=== PATIENT | female | born 1935 | race Caucasian/White ===

== ENCOUNTER 2016-09-12 09:05 | Outpatient (CLI) | payer MEDICARE ==
[2016-09-12 13:07] LABS: BASOPHILS % (AUTO) 0.6 %; EOSINOPHILS # (AUTO) 0.1 10^3/uL (0.0-0.7); EOSINOPHILS % (AUTO) 1.6 %; HGB - HEMOGLOBIN 13.7 g/dL (12.0-16.0); LYMPHOCYTES # (AUTO) 1.6 10^3/uL (1.5-3.5); LYMPHOCYTES % (AUTO) 28.1 %; MEAN CORPUSCULAR HEMOGLOBIN 30.4 pg (27.0-31.0); MEAN CORPUSCULAR HGB CONC 34.2 g/dL (32.0-36.0); MEAN CORPUSCULAR VOLUME 88.7 fL (81.0-99.0); MEAN PLATELET VOLUME 7.4 fL (7.9-10.8); MONOCYTES # (AUTO) 0.4 10^3/uL (0.0-1.0); MONOCYTES % (AUTO) 7.5 %; NEUTROPHILS # (AUTO) 3.6 10^3/uL (1.5-6.6); NEUTROPHILS % (AUTO) 62.2 %; RED CELL DISTRIBUTION WIDTH 12.3 % (12.0-15.0); UNCORRECTED WHITE BLOOD COUNT 5.8 x10^3/uL; WHITE BLOOD COUNT 5.8 x10^3/uL (4.8-10.8)
[2016-09-12 14:09] LABS: ALBUMIN/GLOBULIN RATIO 1.3 (1.0-2.2); BILIRUBIN,TOTAL 0.9 mg/dL (0.2-1.0); BUN - BLOOD UREA NITROGEN 20 mg/dL (6-20); CALCIUM 9.5 mg/dL (8.5-10.3); CARBON DIOXIDE - CO2 26 mmol/L (21-32); CHLORIDE 104 mmol/L (101-111); CHOL/HDL RATIO 4.3 (<4.4); CHOLESTEROL 278 mg/dL; GFR - MDRD 53 (>89); GLUCOSE 119 mg/dL (70-100); HDL CHOLESTEROL 65 mg/dL; LDL/HDL RATIO 2.9 (<4.4); POTASSIUM 4.2 mmol/L (3.5-5.0); SODIUM 139 mmol/L (135-145); TOTAL PROTEIN 7.5 g/dL (6.7-8.2); TRIGLYCERIDES 120 mg/dL; VLDL CHOLESTEROL 24 mg/dL
[2016-09-12 14:22] LABS: HEMOGLOBIN A1C 0.62 g/dL
== END 2016-09-12 09:06 ==
LOC: LAB.WCP 09:05
PROVIDERS: ATTEND Family Medicine
DX: E78.5 Hyperlipidemia, unspecified (principal)
CPT/HCPCS: 36415; 80053; 80061; 82043; 83036; 85025

== ENCOUNTER 2018-11-08 09:34 | Outpatient (CLI) | payer MEDICARE ==
[2018-11-08 10:00] LABS: BASOPHILS % (AUTO) 0.5 %; EOSINOPHILS # (AUTO) 0.1 10^3/uL (0.0-0.7); EOSINOPHILS % (AUTO) 1.4 %; HGB - HEMOGLOBIN 13.8 g/dL (12.0-16.0); LYMPHOCYTES # (AUTO) 1.5 10^3/uL (1.5-3.5); LYMPHOCYTES % (AUTO) 24.2 %; MEAN CORPUSCULAR HEMOGLOBIN 30.1 pg (27.0-31.0); MEAN CORPUSCULAR HGB CONC 33.5 g/dL (32.0-36.0); MEAN CORPUSCULAR VOLUME 89.8 fL (81.0-99.0); MEAN PLATELET VOLUME 8.7 fL (7.9-10.8); MONOCYTES # (AUTO) 0.4 10^3/uL (0.0-1.0); MONOCYTES % (AUTO) 6.8 %; NEUTROPHILS # (AUTO) 4.3 10^3/uL (1.5-6.6); NEUTROPHILS % (AUTO) 66.9 %; PLT - PLATELET COUNT 224 10^3/uL (130-450); RED BLOOD COUNT 4.59 10^6/uL (4.20-5.40); RED CELL DISTRIBUTION WIDTH 12.1 % (12.0-15.0); WHITE BLOOD COUNT 6.4 x10^3/uL (4.8-10.8)
[2018-11-08 10:16] LABS: CREATININE,URINE 193.4 mg/dL; MICROALBUM/CREATININE RATIO,UR 5.7 ug/mg (<30.0); MICROALBUMIN,URINE 1.1 mg/dL (0-300.0)
[2018-11-08 10:21] LABS: ALBUMIN/GLOBULIN RATIO 1.1 (1.0-2.2); ALKALINE PHOSPHATASE 58 IU/L (42-121); ALT ALANINE AMINOTRANSFERASE 15 IU/L (10-60); AST ASPARTATE AMINOTRANSFERASE 21 IU/L (10-42); BILIRUBIN,TOTAL 0.9 mg/dL (0.2-1.0); BUN - BLOOD UREA NITROGEN 20 mg/dL (6-20); CALCIUM 9.4 mg/dL (8.5-10.3); CARBON DIOXIDE - CO2 29 mmol/L (21-32); CHLORIDE 105 mmol/L (101-111); CHOL/HDL RATIO 4.2 (<4.4); CHOLESTEROL 292 mg/dL; CREATININE 0.9 mg/dL (0.4-1.0); GFR - MDRD 60 (>89); GLUCOSE 132 mg/dL (70-100); HDL CHOLESTEROL 69 mg/dL; LDL CHOLESTEROL,CALCULATED 199 mg/dL; LDL/HDL RATIO 2.9 (<4.4); SODIUM 140 mmol/L (135-145); TOTAL PROTEIN 7.6 g/dL (6.7-8.2); VLDL CHOLESTEROL 24 mg/dL
[2018-11-08 10:38] LABS: HB2 TOTAL 14.4 g/dL; HEMOGLOBIN A1C 0.64 g/dL; HEMOGLOBIN A1C % 6.2 % (4.6-6.2)
== END 2018-11-08 09:35 | disposition home or self-care (01) ==
LOC: LAB 09:34
PROVIDERS: ATTEND Physician Assistant Medical
DX: E11.9 Type 2 diabetes mellitus without complications (principal)
CPT/HCPCS: 36415; 80053; 80061; 82043; 82570; 83036; 83721; 85025

== ENCOUNTER 2018-11-29 05:44 | Day surgery (SDC) | payer MEDICARE ==
[2018-11-29] MEDS ORDERED: MIDAZOLAM 2 MG/2 ML VIAL IVP ONE (05:45)
[2018-11-29] MEDS ORDERED: KETOROLAC 0.45% OPHTH DROPS ONE (06:24)
[2018-11-29] MEDS ORDERED: PROPARACAINE 0.5% OPHTH DROPS 15 ML ONE (06:25)
[2018-11-29] MEDS ORDERED: CYCLOPENTOLATE 1% OPHTH DROPS 2 ML ONE (06:25)
[2018-11-29] MEDS ORDERED: PHENYLEPHRINE 2.5% OPHTH 2 ML DROPS ONE (06:25)
[2018-11-29] MEDS ORDERED: PHENYLEPHRINE 2.5% OPHTH 2 ML DROPS LEFTEYE ONE (06:45)
[2018-11-29] MEDS ORDERED: CYCLOPENTOLATE 1% OPHTH DROPS 2 ML LEFTEYE ONE (06:45)
[2018-11-29] MEDS ORDERED: PROPARACAINE 0.5% OPHTH DROPS 15 ML LEFTEYE ONE ×2 (06:45→07:30)
[2018-11-29] MEDS ORDERED: LACTATED RINGERS 1,000 ML IV ONE (06:45)
[2018-11-29] MEDS ORDERED: KETOROLAC 0.45% OPHTH DROPS LEFTEYE ONE (06:45)
[2018-11-29] MEDS ORDERED: BRIMONIDINE 0.2% OPHTH DROPS 5 ML ONE (07:10)
[2018-11-29] MEDS ORDERED: TRIAMCIN/MOXIFLOX OPHTHALMIC 0.6 ML VIAL IO ONE ×2 (07:10→07:30)
[2018-11-29] MEDS ORDERED: TIMOLOL 0.5% OPHTH DROPS ONE (07:10)
--- NOTE | 2018-11-29 07:10 | ANESTHESIA ---
Pre-Anesthesia VS, & Labs - Diagnosis senile combined cataract left - Procedure left cataract extraction with intraocular lens implant Vital Signs: Temp Pulse Resp BP Pulse Ox 36 C L 106 H 16 155/89 H 97 11/29/18 06:28 11/29/18 06:28 11/29/18 06:28 11/29/18 06:28 11/29/18 06:28 Height 5 ft 1 in Weight (kg) 85.9 kg - NPO >8 hours - Is Patient ?: No - Lab Results Current Lab Results: Laboratory Tests 11/29/18 06:42: POC Whole Bld Glucose 127 H Home Medications and Allergies Home Medications: Ambulatory Orders Ascorbic Acid [Vitamin C] 500 mg PO DAILY 11/28/18 Cyanocobalamin (Vitamin B-12) [Vitamin B-12] 5,000 mg PO DAILY 11/28/18 Magnesium Citrate 250 mg PO DAILY 11/28/18 Vitamin E 400 units PO DAILY 11/28/18 Aspirin [Aspirin EC] 1 DAILY 11/29/18 Ascorbic Acid [Vitamin C] 500 mg PO DAILY 11/28/18 Cyanocobalamin (Vitamin B-12) [Vitamin B-12] 5,000 mg PO DAILY 11/28/18 Magnesium Citrate 250 mg PO DAILY 11/28/18 Vitamin E 400 units PO DAILY 11/28/18 Aspirin [Aspirin EC] 1 DAILY 11/29/18 Allergies/Adverse Reactions: Allergies Allergy/AdvReac Type Severity Reaction Status Date / Time No Known Drug Allergies Allergy Verified 11/28/18 13:34 Anes History & Medical History - Medical History Cardiovascular: reports: Hypertension, High cholesterol, Atrial fibrillation Pulmonary: reports: None Gastrointestinal: reports: None Urinary: reports: Frequency Musculoskeletal: reports: None Endocrine/Autoimmune: reports: Type 2 diabetes Skin: reports: Rosacea - Surgical History Orthopedic: Arthroscopic surgery Exam General: Alert Dental: WNL, Dentures full Upper, Partials Lower Mouth Opening: Greater than 4 Fingerbreadths Neck Mobility: Normal Mallampati classification: II Respiratory: Lungs clear Cardiovascular: Regular rate, Normal S1, Normal S2 Mental/Cognitive Status: Alert/Oriented X3 Plan Anesthesia Type: MAC Consent for Procedure(s) Verified and Reviewed: Yes Code Status: Attempt Resuscitation ASA classification: 2-Mild systemic disease Is this case an emergency?: No
[2018-11-29] MEDS ORDERED: BSS/LIDOCAINE/EPINEPHRINE 1 ML SYRINGE ONE (07:11)
[2018-11-29] MEDS ORDERED: VANCOMYCIN OPHTHALMI 8MG/0.8ML 8 MG/0.8 ML SYRINGE IO ONE ×2 (07:11→07:30)
[2018-11-29] MEDS ORDERED: CHONDR SULF/HYALURONATE SYRINGE IO ONE (07:29)
[2018-11-29] MEDS ORDERED: BRIMONIDINE 0.2% OPHTH DROPS 5 ML OPTH ONE (07:29)
[2018-11-29] MEDS ORDERED: EPINEPHrine 1 MG/ML AMP IVP ONE (07:29)
[2018-11-29] MEDS ORDERED: TIMOLOL 0.5% OPHTH DROPS OPTH ONE (07:29)
[2018-11-29] MEDS ORDERED: BSS/LIDOCAINE/EPINEPHRINE 1 ML SYRINGE IO ONE (07:30)
[2018-11-29 07:51] VITALS: BP 126/66
--- NOTE | 2018-11-29 08:30 | OPERATIVE REPORT ---
DATE OF SERVICE: 11/29/2018 Physician: Darwin Oneil MD PREOPERATIVE DIAGNOSIS: Visually significant cataract, left eye. This was her first cataract surgery. POSTOPERATIVE DIAGNOSIS: Visually significant cataract, left eye. This was her first cataract surgery. DESCRIPTION OF PROCEDURE: Phacoemulsification with posterior chamber intraocular lens implant, left eye. SURGEON: Darwin Oneil MD ANESTHESIA: Monitored anesthesia care. COMPLICATIONS: None. OPERATIVE INDICATIONS: This is an 83-year-old woman with progressive vision loss in the left eye due to 2+ nuclear sclerotic, 1 to 2+ cortical and 1 to 2+ posterior subcapsular cataract. Best corrected visual acuity was 20/25, with glare to 20/60 in the left eye. Indications for surgery are overall decrease in vision, difficulty seeing words on a computer screen, difficulty reading, difficulty seeing street signs, difficulty driving in low light or at night, difficulty driving at night because of headlights from other vehicles, and difficulty with glare or glare or bright lights in any situation. She was consented at length concerning risks and benefits of cataract surgery, after which she expressed a desire to proceed with surgery. OPERATIVE PROCEDURE: Patient was taken to OR #3 and placed under monitored anesthesia care. A surgical timeout was conducted confirming correct patient, correct procedure, and correct surgical site. She was given topical anesthesia, and prepped and draped in the usual sterile fashion. The eye was entered at the 6 and 3-o'clock positions. Intracameral Shugarcaine was injected into the anterior chamber, followed by Viscoat. A continuous-tear curvilinear capsulorrhexis was performed. The nucleus was hydrodissected and phacoemulsified. The cortex was evacuated using automated infusion and aspiration. Provisc was injected in the capsular bag and a 23.5-diopter intraocular lens inserted in the bag. Approximately 0.8 mL of a mixture of triamcinolone, moxifloxacin, and vancomycin was injected subconjunctivally in the superior quadrant for infection and inflammation prophylaxis. I and A was used to evacuate the viscoelastic materials. The eye was inflated to physiologic pressure using balanced salt solution and found to be watertight. Patient was taken from the operating room in good condition and given postoperative instructions. TD: 11/29/2018 07:54 MTDD
== END 2018-11-29 05:45 | disposition home or self-care (01) ==
LOC: SDS 05:44
PROVIDERS: ATTEND Ophthalmology
PROC: 08RK3JZ Replacement of Left Lens with Synthetic Substitute, Percutaneous Approach (ICD-10-PCS; principal; 2018-11-29 07:30)
DX: H25.812 Combined forms of age-related cataract, left eye (principal); E11.9 Type 2 diabetes mellitus without complications; I10 Essential (primary) hypertension; E78.00 Pure hypercholesterolemia, unspecified; I48.91 Unspecified atrial fibrillation
CPT/HCPCS: 66984; A9270; J3490; J7120; V2632

== ENCOUNTER 2019-01-03 07:12 | Day surgery (SDC) | payer MEDICARE ==
[~2019-01-03 07:12] MED LIST: BRIMONIDINE 0.2% OPHTH DROPS 5 ML ONE; BSS/LIDOCAINE/EPINEPHRINE 1 ML SYRINGE ONE; CYCLOPENTOLATE 1% OPHTH DROPS 2 ML ONE; EPINEPHrine 1 MG/ML AMP ONE; KETOROLAC 0.45% OPHTH DROPS ONE; PHENYLEPHRINE 2.5% OPHTH 2 ML DROPS ONE; PROPARACAINE 0.5% OPHTH DROPS 15 ML ONE; TIMOLOL 0.5% OPHTH DROPS ONE; TRIAMCIN/MOXIFLOX OPHTHALMIC 0.6 ML VIAL IO ONE
[2019-01-03] MEDS ORDERED: LACTATED RINGERS 500 ML IV ONE (07:17)
[2019-01-03] MEDS ORDERED: KETOROLAC 0.45% OPHTH DROPS RIGHTEYE ONE (07:25)
[2019-01-03] MEDS ORDERED: PROPARACAINE 0.5% OPHTH DROPS 15 ML RIGHTEYE ONE (07:25)
[2019-01-03] MEDS ORDERED: CYCLOPENTOLATE 1% OPHTH DROPS 2 ML RIGHTEYE ONE (07:25)
[2019-01-03] MEDS ORDERED: PHENYLEPHRINE 2.5% OPHTH 2 ML DROPS RIGHTEYE ONE (07:25)
--- NOTE | 2019-01-03 08:01 | ANESTHESIA ---
Pre-Anesthesia VS, & Labs - Diagnosis R senile combined cataract - Procedure R extraction cataract w/IOL Vital Signs: Temp Pulse Resp BP Pulse Ox 37.2 C 87 16 146/78 H 98 01/03/19 07:17 01/03/19 07:17 01/03/19 07:17 01/03/19 07:17 01/03/19 07:17 Height 5 ft 2 in Weight (kg) 86.1 kg - NPO >8 hours Last Fluid Intake: h20 at 0600 - Is Patient ?: No - Lab Results Current Lab Results: Laboratory Tests 01/03/19 07:37: POC Whole Bld Glucose 111 H Home Medications and Allergies Ascorbic Acid [Vitamin C] 500 mg PO DAILY 11/28/18 Cyanocobalamin (Vitamin B-12) [Vitamin B-12] 5,000 mg PO DAILY 11/28/18 Magnesium Citrate 250 mg PO DAILY 11/28/18 Vitamin E 400 units PO DAILY 11/28/18 Aspirin [Aspirin EC] 1 tab PO DAILY 11/29/18 Allergies/Adverse Reactions: Allergies Allergy/AdvReac Type Severity Reaction Status Date / Time No Known Drug Allergies Allergy Verified 11/28/18 13:34 Anes History & Medical History - Anesthetic History Anesthesia Complications: reports: No previous complications Family history of Anesthesia Complications: Denies Family history of Malignant Hyperthermia: Denies - Medical History Cardiovascular: reports: Hypertension, High cholesterol, Atrial fibrillation Pulmonary: reports: None Gastrointestinal: reports: None Urinary: reports: Frequency Musculoskeletal: reports: None Endocrine/Autoimmune: reports: Type 2 diabetes Skin: reports: Rosacea - Surgical History Eyes Ears Nose Throat (EENT): Cataracts Orthopedic: Arthroscopic surgery Exam General: Alert, Oriented x3, Cooperative Dental: Dentures full Upper, Partials Lower Mouth Openin Fingerbreadth Neck Mobility: Normal Mallampati classification: II Thyromental Distance: 4-6 cm Respiratory: Lungs clear, Normal breath sounds Neurological: Normal speech Mental/Cognitive Status: Alert/Oriented X3, Normal for patient Plan Anesthesia Type: MAC Consent for Procedure(s) Verified and Reviewed: Yes Code Status: Attempt Resuscitation ASA classification: 2-Mild systemic disease Is this case an emergency?: No
[2019-01-03] MEDS ORDERED: EPINEPHrine 1 MG/ML AMP IVP ONE (08:54)
[2019-01-03] MEDS ORDERED: CHONDR SULF/HYALURONATE SYRINGE IO ONE (08:54)
[2019-01-03] MEDS ORDERED: BRIMONIDINE 0.2% OPHTH DROPS 5 ML OPTH ONE (08:54)
[2019-01-03] MEDS ORDERED: VANCOMYCIN OPHTHALMI 8MG/0.8ML 8 MG/0.8 ML SYRINGE IO ONE (08:55)
[2019-01-03] MEDS ORDERED: TIMOLOL 0.5% OPHTH DROPS OPTH ONE (08:55)
[2019-01-03] MEDS ORDERED: BSS/LIDOCAINE/EPINEPHRINE 1 ML SYRINGE IO ONE (08:55)
[2019-01-03] MEDS ORDERED: TRIAMCIN/MOXIFLOX OPHTHALMIC 0.6 ML VIAL IO ONE (08:56)
[2019-01-03 09:22] VITALS: BP 119/67
--- NOTE | 2019-01-03 11:37 | OPERATIVE REPORT ---
DATE OF SERVICE: 01/03/2019 Physician: Darwin Oneil MD PREOPERATIVE DIAGNOSIS: Visually significant cataract, right eye. Cataract surgery was performed on the left eye on 11/29/2018. POSTOPERATIVE DIAGNOSIS: Visually significant cataract, right eye. Cataract surgery was performed o n the left eye on 11/29/2018. PROCEDURE: Phacoemulsification with posterior chamber intraocular lens implant, right eye. SURGEON: Darwin Oneil MD ANESTHESIA: Monitored anesthesia care. COMPLICATIONS: None. OPERATIVE INDICATIONS: This is an 83-year-old woman with progressive vision loss in the right eye du e to 2+ nuclear sclerotic and 1-2+ cortical cataract. Best corrected visual acuity was 20/25, with g lare to 20/60 in the right eye. Indications for surgery are overall decrease in vision, difficulty s eeing words on a computer screen, difficulty reading, difficulty seeing words, closed caption or game scores on TV, difficulty seeing street signs, difficulty driving in low light or at night, difficult y driving at night because of headlights from other vehicles, and difficulty with glare or bright lig hts in any situation. She was consented at length concerning risks and benefits of cataract surgery, after which she expressed a desire to proceed with surgery. OPERATIVE PROCEDURE: Patient was taken to OR #3 and placed under monitored anesthesia care. Surgica l timeout was conducted confirming correct patient, correct procedure, and correct surgical site. cortez was given topical anesthesia and then prepped and draped in the usual sterile fashion. The eye was entered at the 12 and 9 o'clock positions. Intracameral Shugarcaine was injected into the anterior chamber, followed by Viscoat. A continuous-tear curvilinear capsulorrhexis was performed. The nucle us was hydrodissected and phacoemulsified. The cortex was evacuated using automated infusion and asp iration. Provisc was injected in the capsular bag, and a 23.0 diopter intraocular lens was inserted in the bag. Approximately 0.25 mL of a mixture of triamcinolone and moxifloxacin was then injected t ranssclerally into the vitreous. An additional 0.55 mL of a mixture of triamcinolone, moxifloxacin a nd vancomycin was injected subconjunctivally in the superior quadrant for infection and inflammation prophylaxis. I and A was used to evacuate the viscoelastic materials. The eye was inflated to physi ologic pressure using balanced salt solution and found to be watertight. Patient was taken from the operating room in good condition and given postoperative instructions. TD: 01/03/2019 09:19
== END 2019-01-03 07:13 | disposition home or self-care (01) ==
LOC: SDS 07:12
PROVIDERS: ATTEND Ophthalmology
PROC: 08RJ3JZ Replacement of Right Lens with Synthetic Substitute, Percutaneous Approach (ICD-10-PCS; principal; 2019-01-03 08:30)
DX: H25.811 Combined forms of age-related cataract, right eye (principal); E11.9 Type 2 diabetes mellitus without complications; I48.91 Unspecified atrial fibrillation; I10 Essential (primary) hypertension; E78.00 Pure hypercholesterolemia, unspecified
CPT/HCPCS: 66984; A9270; J3490; V2632

== ENCOUNTER 2019-04-30 12:55 | Outpatient (CLI) | payer MEDICARE ==
--- NOTE | 2019-04-30 15:26 | Ultrasound Report ---
Reason: LT BREAST MASS Procedure Date: 04/30/2019 Accession Number: [id number] / [id number] Procedure: US - Breast Unilateral Limited CPT Code: Final Report FULL RESULT: EXAM: Diagnostic Lissett Connerat, Breast Unilateral Limited DATE: 04/30/2019 1:53 PM CLINICAL HISTORY: Palpable left breast mass COMPARISON: None MAMMOGRAM: TECHNIQUE: (B) - Bilateral CC and MLO views were obtained. PARENCHYMAL PATTERN: (D) - The breasts demonstrate heterogeneously dense fibroglandular parenchyma bilaterally. FINDINGS: Right breast: There are no suspicious masses, calcifications, or areas of distortion. Scattered benign-appearing calcifications are present. Left breast: There is a spiculated left upper outer quadrant mass 10 cm from the nipple. There is overlying skin retraction. Few scattered benign-appearing calcifications are seen in the remainder of the breast.. LEFT BREAST ULTRASOUND: TECHNIQUE: Real time scanning by the technical program manager with saved static images reviewed. FINDINGS: Corresponding to the mammographic and palpable abnormality is a 3 x 2.9 x 1.9 cm vascular hypoechoic irregular spiculated mass. No pathologic axillary lymphadenopathy is identified. IMPRESSION: 1. Highly suggestive for malignancy. BI-RADS category 5. Left breast. 2. Negative right breast. RECOMMENDATION: (BIOPSY) - left breast BI-RADS CATEGORY: (5) - Highly suggestive for malignancy. STANDARD QUALIFYING STATEMENTS: 1. This examination was not reviewed with the aid of Computer-Aided Detection (CAD). 2. A negative or benign imaging report should not preclude biopsy if clinically suspicious findings are present. 3. Dense breasts may obscure an underlying neoplasm. 4. This examination was reviewed with the aid of 3D breast imaging (tomosynthesis).
== END 2019-04-30 12:56 | disposition home or self-care (01) ==
LOC: DI 12:55
PROVIDERS: ATTEND Physician Assistant Medical
DX: N63.21 Unspecified lump in the left breast, upper outer quadrant (principal)
CPT/HCPCS: 76642; 77066

== ENCOUNTER 2019-05-13 12:54 | Outpatient (CLI) | payer MEDICARE ==
[2019-05-13] MEDS ORDERED: BUFFERED LIDOCAINE 10 ML SYRINGE ONE (13:02)
--- NOTE | 2019-05-13 14:10 | Mammography Report ---
Reason: LT BREAST MASS Procedure Date: 05/13/2019 Accession Number: [id number] / [id number] Procedure: KERRY - Diagnostic Dig LT CPT Code: Final Report FULL RESULT: PROCEDURE: Ultrasound-guided needle biopsy left breast mass. CLINICAL DATA: Targeted mass measuring 3 cm with irregular margins in the 2 o'clock axis of the left breast. Informed consent was obtained. Using standard aseptic technique, 1% buffered lidocaine was injected into the left breast for local anesthesia. A small shawn was made in the skin with a #11 blade. A 12-gauge Stream[employer] System vacuum-assisted device was used to obtain 3 specimens. A specialized biopsy marker clip was placed into the biopsy cavity under ultrasound guidance. The patient was taken to separate mammography machine and a two-view digital mammography was performed to verify the clip placement and any complications. The mammography showed the clip to be in the region of the targeted mass. The wound was dressed and ice applied. The patient was observed for approximately 15 minutes, then was discharged from diagnostic imaging Department in good condition following instructions on wound care and obtaining biopsy results. The patient is scheduled to receive the biopsy results from the referring physician. The tissue was sent for histologic analysis. IMPRESSION: Ultrasound-guided biopsy of the left breast. AN ADDENDUM WILL BE MADE TO THIS REPORT WHEN PATHOLOGY IS REVIEWED TO ESTABLISH CONCORDANCE.
[2019-05-13] MEDS ORDERED: BUFFERED LIDOCAINE 10 ML SYRINGE IU ONE (16:32)
== END 2019-05-13 12:55 | disposition home or self-care (01) ==
LOC: DI 12:54
PROVIDERS: ATTEND Physician Assistant Medical
DX: C50.412 Malignant neoplasm of upper-outer quadrant of left female breast (principal); Z17.0 Estrogen receptor positive status [ER+]
CPT/HCPCS: 19083

== ENCOUNTER 2019-07-11 13:31 | Outpatient (CLI) | payer MEDICARE | END 2019-07-11 13:32 | disposition home or self-care (01) | LOC: COV 13:31 | PROVIDERS: ATTEND Surgery | DX: Z01.812 Encounter for preprocedural laboratory examination (principal); C50.912 Malignant neoplasm of unspecified site of left female breast | CPT/HCPCS: 81599 ==

== ENCOUNTER 2019-07-15 07:55 | Day surgery (SDC) | payer MEDICARE ==
[~2019-07-15 07:55] MED LIST changes: -BRIMONIDINE 0.2% OPHTH DROPS 5 ML ONE; -BSS/LIDOCAINE/EPINEPHRINE 1 ML SYRINGE ONE; +CEFAZOLIN SODIUM IN 0.9 % NACL 2 GM/100 ML BAG IV ONE; -CYCLOPENTOLATE 1% OPHTH DROPS 2 ML ONE; -EPINEPHrine 1 MG/ML AMP ONE; -KETOROLAC 0.45% OPHTH DROPS ONE; -PHENYLEPHRINE 2.5% OPHTH 2 ML DROPS ONE; -PROPARACAINE 0.5% OPHTH DROPS 15 ML ONE; -TIMOLOL 0.5% OPHTH DROPS ONE; -TRIAMCIN/MOXIFLOX OPHTHALMIC 0.6 ML VIAL IO ONE
[2019-07-15] MEDS ORDERED: LACTATED RINGERS 1,000 ML IV ONE (08:05)
[2019-07-15] MEDS ORDERED: BUFFERED LIDOCAINE 10 ML SYRINGE ONE (08:47)
[2019-07-15] MEDS ORDERED: LIDOCAINE 1%-EPI 1:100000 20 ML MDV ONE ×2 (08:55→11:52)
[2019-07-15] MEDS ORDERED: BUPIVACAINE 0.5% PF 30 ML VIAL ONE ×2 (08:55→11:52)
--- NOTE | 2019-07-15 09:04 | ANESTHESIA ---
Pre-Anesthesia VS, & Labs - Diagnosis left breast cancer - Procedure Left breast lumpectomy with sentinel node biopsy Vital Signs: Temp Pulse Resp BP Pulse Ox 36.0 C L 115 H 20 159/82 H 98 07/15/19 07:52 07/15/19 07:52 07/15/19 07:52 07/15/19 07:52 07/15/19 07:52 Height 5 ft 2 in Weight (kg) 81.9 kg Body Mass Index 33.8 - NPO >8 hours - Is Patient ?: No - Lab Results Current Lab Results: Laboratory Tests 07/15/19 08:08: POC Whole Bld Glucose 115 H Home Medications and Allergies Home Medications: Ambulatory Orders Aspirin 81 mg PO 07/12/19 Aspirin 81 mg PO 07/12/19 Allergies/Adverse Reactions: Allergies Allergy/AdvReac Type Severity Reaction Status Date / Time No Known Drug Allergies Allergy Verified 07/10/19 12:02 Anes History & Medical History - Anesthetic History Anesthesia Complications: reports: No previous complications - Medical History Cardiovascular: reports: Hypertension, High cholesterol, Atrial fibrillation Pulmonary: reports: None Gastrointestinal: reports: None Urinary: reports: Frequency Neuro: reports: None Musculoskeletal: reports: None Endocrine/Autoimmune: reports: Type 2 diabetes (diet controlled) Blood Disorders: reports: None Skin: reports: Rosacea Smoking Status: Never smoker Psychosocial: reports: No issues indicated Other Past Medical History: breast cancer - Surgical History Eyes Ears Nose Throat (EENT): Cataracts Orthopedic: Arthroscopic surgery (bilateral knees) Results - EKG Results EKG Comparison: Reviewed EKG (afib with left BBB) Exam General: Alert, Oriented x3, Cooperative, No acute distress Dental: Dentures full Upper, Partials Upper Mouth Openin Fingerbreadth Neck Mobility: Normal Mallampati classification: II Thyromental Distance: 4-6 cm Respiratory: Lungs clear, Normal breath sounds, No respiratory distress, No accessory muscle use Cardiovascular: Other (irregular) Mental/Cognitive Status: Alert/Oriented X3, Normal for patient Plan Anesthesia Type: General Consent for Procedure(s) Verified and Reviewed: Yes Code Status: Attempt Resuscitation ASA classification: 3-Severe systemic disease Is this case an emergency?: No
[2019-07-15] MEDS ORDERED: ceFAZolin 1 GM VIAL ONE (11:52)
[2019-07-15] MEDS ORDERED: SODIUM CHLORIDE 0.9% 10 ML ONE (11:54)
[2019-07-15] MEDS ORDERED: PROPOFOL 200 MG/20 ML VIAL IVP ONE (12:07)
[2019-07-15] MEDS ORDERED: HYDROmorphone 1 MG/ML CARPUJECT IVP ONE (12:07)
[2019-07-15] MEDS ORDERED: fentaNYL 100 MCG/2 ML VIAL IVP ONE (12:07)
[2019-07-15] MEDS ORDERED: KETOROLAC 30 MG/ML VIAL IVP ONE (12:07)
[2019-07-15] MEDS ORDERED: ONDANSETRON 4 MG/2 ML VIAL IVP ONE (12:07)
[2019-07-15] MEDS ORDERED: PHENYLEPHRINE 10 MG/ML VIAL IV ONE (12:07)
[2019-07-15] MEDS ORDERED: ACETAMINOPHEN 1,000 MG/100 ML 100 ML IV ONE ×2 (12:07→12:08)
[2019-07-15] MEDS ORDERED: LIDOCAINE 1%-EPI 1:100000 30 ML MDV SUBQ ONE (12:24)
[2019-07-15] MEDS ORDERED: BUPIVACAINE 0.5% PF 30 ML VIAL INFIL ONE (12:24)
--- NOTE | 2019-07-15 13:27 | OPERATIVE REPORT ---
Operative Report - General Procedure Date: 07/15/19 Planned Procedure: Left breast lumpectomy and sentinel node biopsy Pre-Op Diagnosis: Left breast cancer Procedure Performed: Left breast lumpectomy and axillary dissection Post Op Diagnosis: Left breast cancer - Procedure Note Primary Surgeon: Collins Anesthesia Provider: NATHANIEL Millard Anesthesia Technique: General LMA, Local Pathology: Left breast mass and axillary tail incluiding palpable node. IV Fluids (mL): 500 Estimated Blood Loss (mL): 40 Drain/Tube Type: Jose drain Findings: 1. No sentinel nodes identified 2. 1 palpably enlarged level 2 axillary node Complications: None apparent - Other Other Information/Narrative: After obtaining informed consent, the patient was brought to the operating room and placed in the supine position on the operating table. Following successful induction of general anesthesia, appropriate padding of all bony prominences, and placed on appropriate monitors, the left chest and axilla were prepped and draped in the standard surgical fashion. A timeout was held per scope protocol. All elements of the surgical safety checklist were followed before, during, and after the procedure. We began the procedure by infiltrating a mixture of local anesthetics and an elliptical pattern around the visible and palpable mass in the upper outer quadrant of the left breast. An incision was created here and carried down through the skin and subcutaneous tissue. Laterally, at the axillary limit of the incision, we began searching for a sentinel node. The nipple injection site had greater than 2000 counts per second and we were not able to find any counts above 0 in the patient's axilla. We elected to remove the specimen en bloc with the palpable level 2 axillary node. This had been noted on the MRI to be a total measurement of approximately 13 cm.A ruler, I measured 13 cm from the palpable node over the visible and palpable mass. Limits of dissection were determined by extending this measurement 1 cm proximally and distally.The incision was carried through the skin and subcutaneous tissue and continued all the way to the chest wall laterally. The chest wall was not well was then followed approximately 2 into the axillary packet. The lymph node that could be visualized is abnormal on the MRI was identified palpably. Dissection was extended 1 cm proximal to this. A ferritin efferent lymphatics were addressed with suture ligature. We continued in a circumferential fashion the breast tissue from the underlying pectoralis muscle posteriorly and anteriorly from the overlying dermis. When the entire dissection was complete, the specimen was liberated and measured on the back table.The specimen was 16 x 13 cm with variable degrees of thickness. The defect was then checked for hemostasis. It was irrigated with warm water containing Ancef. Due to the extensive size and volume defect, I elected to place a drain in this pocket. This was placed inferiorly and brought out inferior medially. It was sewn into place with a nylon suture. The incision was then closed with interrupted Vicryl suture and Monocryl stitches were placed in the skin. All sponge, needle, and instrument counts were correct at the conclusion of the case. The patient was allowed awaken from anesthesia without difficulty and taken to the postanesthesia care unit in good condition.
[2019-07-15] MEDS ORDERED: IBUPROFEN 600 MG TABLET PO PRN (13:35)
[2019-07-15] MEDS ORDERED: oxyCODONE 5 MG TABLET PO PRN (13:35)
[2019-07-15] MEDS ORDERED: ONDANSETRON 4 MG/2 ML VIAL IVP PRN (13:35)
[2019-07-15] MEDS ORDERED: ACETAMINOPHEN 325 MG TABLET PO PRN (13:35)
[2019-07-15 14:31] VITALS: BP 127/62
[2019-07-15] MEDS ORDERED: oxyCODONE 5 MG TABLET ONE (14:35)
--- NOTE | 2019-07-16 09:01 | Nuclear Medicine Report ---
Reason: LEFT BREAST CA Procedure Date: 07/15/2019 Accession Number: [id number] / [id number] Procedure: NM - Lymph Node Scintigraphy CPT Code: Final Report FULL RESULT: PROCEDURE: SENTINEL LYMPH NODE INJECTION WITHOUT IMAGING RADIOPHARMACEUTICAL: 0.5-1.0 mCi Millipore filtered Tc-99m sulfur colloid. INDICATIONS: LEFT BREAST CA PROCEDURE: The area around the nipple was prepped and draped in a sterile fashion. Tc-99m sulfur colloid was injected intra-dermally around the outer edge of the areola in the left breast. Multiple images were obtained in an attempt to locate a sentinel lymph node. IMPRESSION: Administration of radiotracer into the left breast periareolar region for intra-operative sentinel lymph node localization. The postinjection imaging did not identify a discrete sentinel lymph node. Reviewed by: Balaji Quiroga MD on 07/16/2019 8:59 AM PDT Approved by: Balaji Quiroga MD on 07/16/2019 8:59 AM PDT Station ID: [id number]
== END 2019-07-15 07:56 | disposition home or self-care (01) ==
LOC: SDS 07:55
PROVIDERS: ATTEND Surgery
PROC: 07B60ZX Excision of Left Axillary Lymphatic, Open Approach, Diagnostic (ICD-10-PCS; 2019-07-15)
PROC: 0HBU0ZZ Excision of Left Breast, Open Approach (ICD-10-PCS; principal; 2019-07-15 09:30)
DX: C50.412 Malignant neoplasm of upper-outer quadrant of left female breast (principal); C77.3 Secondary and unspecified malignant neoplasm of axilla and upper limb lymph nodes; Z17.0 Estrogen receptor positive status [ER+]; E11.9 Type 2 diabetes mellitus without complications; I10 Essential (primary) hypertension; I48.91 Unspecified atrial fibrillation; E66.9 Obesity, unspecified; Z68.33 Body mass index [BMI] 33.0-33.9, adult
CPT/HCPCS: 19301; 38525; 78195; 93005; A9270; A9541; J0131; J0690; J1170; J7120

== ENCOUNTER 2021-11-10 15:31 | Inpatient (IN) | payer MEDICARE ==
[2021-11-10 16:03] LABS: BASOPHILS # (AUTO) 0.1 10^3/uL (0.0-0.1); BASOPHILS % (AUTO) 0.5 %; EOSINOPHILS # (AUTO) 0.1 10^3/uL (0.0-0.7); EOSINOPHILS % (AUTO) 0.6 %; HCT - HEMATOCRIT 41.6 % (37.0-47.0); HGB - HEMOGLOBIN 13.1 g/dL (12.0-16.0); LYMPHOCYTES # (AUTO) 1.3 10^3/uL (1.5-3.5); LYMPHOCYTES % (AUTO) 12.8 %; MEAN CORPUSCULAR HGB CONC 31.5 g/dL (32.0-36.0); MEAN CORPUSCULAR VOLUME 92.2 fL (81.0-99.0); MONOCYTES # (AUTO) 0.8 10^3/uL (0.0-1.0); MONOCYTES % (AUTO) 7.7 %; NEUTROPHILS # (AUTO) 7.6 10^3/uL (1.5-6.6); PLT - PLATELET COUNT 314 10^3/uL (130-450); RED BLOOD COUNT 4.51 10^6/uL (4.20-5.40); RED CELL DISTRIBUTION WIDTH 15.3 % (12.0-15.0); WHITE BLOOD COUNT 9.8 x10^3/uL (4.8-10.8)
--- NOTE | 2021-11-10 16:12 | XRAY Report ---
PROCEDURE: Chest 1 View X-Ray INDICATIONS: Chest Pain TECHNIQUE: One view of the chest was acquired. COMPARISON: Chest x-ray 08/18/2021 FINDINGS: Surgical changes and devices: None. Lungs and pleura: There is interval development of moderate left and mild right pleural effusions. Mediastinum: Mediastinal contours appear normal. Heart size is normal. Bones and chest wall: No suspicious bony lesions. Overlying soft tissues appear unremarkable. IMPRESSION: Interval development of bilateral pleural effusions as above. Underlying areas of pneumonia and/or at electasis or mass lesion cannot be definitively excluded. Follow-up after appropriate therapy to docu ment resolution. Reviewed by: Kortney Lopez MD on 11/10/2021 4:11 PM PDT Approved by: Kortney Lopez MD on 11/10/2021 4:11 PM PDT Station ID: [id number]
[2021-11-10] MEDS ORDERED: diltiaZEM INJ 125 MG in DEXTROSE 5% 100 ML IV STA (16:17)
[2021-11-10] MEDS ORDERED: diltiaZEM INJ 5 MG/ML VIAL IVP STA ×2 (16:17→19:07)
--- NOTE | 2021-11-10 16:19 | ED Physician Documentation ---
PD HPI CHEST PAIN - Stated complaint Stated Complaint: CHEST PX - Chief complaint Chief Complaint: Cardiac - History obtained from History obtained from: Patient, Family - History of Present Illness Timing - details: Abrupt onset, Intermittant Pain level max: 10 Pain level now: 0 Quality: Pressure Location: Substernal Radiation: No: Jaw, Neck, Back, Abdominal, Left upper extremity, Right upper extremity Improved by: Nothing Worsened by: No: Exertion, Inspiration, Eating, Movement, Palpation, Position Associated symptoms: Shortness of air, Palpitations (History of atrial fibrillation, states currently is not on medication for this). No: Diaphoresis, Nausea, Vomiting, Feeling faint / dizzy, General Weakness, Cough - Additional information Additional information: Patient is an 86-year-old female who presents to the emergency department complaint of chest pain intermittently for the past 2 to 3 days. Last for 20 to 30 minutes at a time. Nothing seems to make it better or worse. No change with exertion. She states she has felt short of breath for the last several days as well. Has a history of atrial fibrillation. She is not on any medications at home currently. Has a history of stage III breast cancer status postchemotherapy and radiation. She is reestablishing care with oncology to talk about palliative chemotherapy. She saw oncology today and was sent here for evaluation for her chest pain. Chest pain is in the center of her chest. She has noted increased leg swelling as well. Review of Systems Ten Systems: 10 systems reviewed and negative Constitutional: denies: Fever, Chills Nose: denies: Rhinorrhea / runny nose, Congestion Throat: denies: Sore throat Cardiac: reports: Chest pain / pressure Respiratory: reports: Dyspnea. denies: Cough GI: denies: Abdominal Pain, Nausea, Vomiting, Diarrhea Skin: denies: Rash Musculoskeletal: denies: Neck pain, Back pain Neurologic: denies: Headache PD PAST MEDICAL HISTORY - Past Medical History Cardiovascular: Hypertension, High cholesterol, Atrial fibrillation Respiratory: None Neuro: None Endocrine/Autoimmune: Type 2 diabetes (diet controlled) GI: None : Frequency HEENT: Chronic vision loss Psych: None Musculoskeletal: None Derm: Rosacea - Past Surgical History Ortho: Arthroscopic surgery (bilateral knees) HEENT: Cataracts - Present Medications Home Medications: Ambulatory Orders Medication Instructions Recorded Confirmed traMADol [Ultram] 50 mg PO TID PRN 11/10/21 11/10/21 - Allergies Allergies/Adverse Reactions: Allergies Allergy/AdvReac Type Severity Reaction Status Date / Time No Known Drug Allergies Allergy Verified 11/10/21 15:45 - Social History Smoking Status: Never smoker PD ED PE NORMAL - Vitals Vital signs reviewed: Yes - General General: Alert and oriented X 3, No acute distress - HEENT HEENT: PERRL, Moist mucous membranes - Neck Neck: Supple, no meningeal sign - Cardiac Cardiac: RRR, Strong equal pulses - Respiratory Respiratory: No respiratory distress, Other (decreased BS bilaterally.) - Abdomen Abdomen: Soft, Non tender, Non distended - Derm Derm: Warm and dry, No rash, Other (Chronic skin changes over the left breast and left upper chest from radiation. There is scaling and papules) - Extremities Extremities: Other (2+ BLE edema) - Neuro Neuro: Alert and oriented X 3 Results - Vitals Vitals: Vital Signs - 24 hr 11/10/21 11/10/21 11/10/21 15:38 15:44 16:29 Temperature 36.4 C L 36.5 C Heart Rate 135 H 135 H 147 H Respiratory 31 H 31 H 29 H Rate Blood Pressure 150/93 H 150/93 H 159/114 H O2 Saturation 97 97 96 If not protocol : Oxygen Flow, liters/minute 11/10/21 11/10/21 11/10/21 16:30 17:00 17:05 Temperature Heart Rate 126 H 90 Respiratory 35 H 24 Rate Blood Pressure 154/108 H 122/67 O2 Saturation 94 92 88 L If not protocol : Oxygen Flow, liters/minute 11/10/21 11/10/21 11/10/21 17:09 17:14 17:30 Temperature Heart Rate 110 H 114 H Respiratory 25 H 24 Rate Blood Pressure 140/91 H 137/92 H O2 Saturation 94 96 96 If not protocol 2 : Oxygen Flow, liters/minute 11/10/21 11/10/21 11/10/21 18:00 18:30 19:00 Temperature Heart Rate 118 H 120 H 116 H Respiratory 33 H 28 H 25 H Rate Blood Pressure 160/112 H 146/98 H 144/86 H O2 Saturation 94 96 96 If not protocol 2 2 2 : Oxygen Flow, liters/minute Oxygen O2 Source Nasal cannula Oxygen Flow Rate 2 - EKG (time done) 1536 Rate: Rate (enter#) (140) Rhythm: Atrial fibrillation (w/ RVR) Intervals: LBBB Compare to prior EKG: Unchanged from prior EKG (07-15-2019) - Labs Labs: Laboratory Tests 11/10/21 11/10/21 11/10/21 15:55 15:55 15:55 WBC 9.8 RBC 4.51 Hgb 13.1 Hct 41.6 MCV 92.2 MCH 29.0 MCHC 31.5 L RDW 15.3 H Plt Count 314 MPV 9.0 Neut # (Auto) 7.6 H Lymph # (Auto) 1.3 L [place] # (Auto) 0.8 Eos # (Auto) 0.1 Baso # (Auto) 0.1 Absolute Nucleated RBC 0.00 Nucleated RBC % 0.0 Sodium 140 Potassium 4.3 Chloride 101 Carbon Dioxide 26 Anion Gap 13.0 BUN 22 H Creatinine 1.2 H Estimated GFR (MDRD) 43 L Glucose 158 H Calcium 10.0 Total Bilirubin 0.5 AST 31 ALT 11 Alkaline Phosphatase 117 Troponin I High Sens 20.2 H* B-Natriuretic Peptide Total Protein 7.9 Albumin 3.7 Globulin 4.2 Albumin/Globulin Ratio 0.9 L Lipase 50 Nasal Adenovirus (PCR) Nasal B. parapertussis DNA (PCR) Nasal Coronavir 229E PCR Nasal Coronavir HKU1 PCR Nasal Coronavir NL63 PCR Nasal Coronavir OC43 PCR Nasal Enterovir/Rhinovir PCR Nasal Influenza B PCR Nasal Influenza A PCR Nasal Parainfluen 1 PCR Nasal Parainfluen 2 PCR Nasal Parainfluen 3 PCR Nasal Parainfluen 4 PCR Nasal RSV (PCR) Nasal B.pertussis DNA PCR Nasal C.pneumoniae (PCR) Naseem Human Metapneumo PCR Nasal M.pneumoniae (PCR) Nasal SARS-CoV-2 (PCR) 11/10/21 11/10/21 15:55 18:12 WBC RBC Hgb Hct MCV MCH MCHC RDW Plt Count MPV Neut # (Auto) Lymph # (Auto) [place] # (Auto) Eos # (Auto) Baso # (Auto) Absolute Nucleated RBC Nucleated RBC % Sodium Potassium Chloride Carbon Dioxide Anion Gap BUN Creatinine Estimated GFR (MDRD) Glucose Calcium Total Bilirubin AST ALT Alkaline Phosphatase Troponin I High Sens B-Natriuretic Peptide 335 H Total Protein Albumin Globulin Albumin/Globulin Ratio Lipase Nasal Adenovirus (PCR) NOT DETECTED Nasal B. parapertussis DNA (PCR) NOT DETECTED Nasal Coronavir 229E PCR NOT DETECTED Nasal Coronavir HKU1 PCR NOT DETECTED Nasal Coronavir NL63 PCR NOT DETECTED Nasal Coronavir OC43 PCR NOT DETECTED Nasal Enterovir/Rhinovir PCR NOT DETECTED Nasal Influenza B PCR NOT DETECTED Nasal Influenza A PCR NOT DETECTED Nasal Parainfluen 1 PCR NOT DETECTED Nasal Parainfluen 2 PCR NOT DETECTED Nasal Parainfluen 3 PCR NOT DETECTED Nasal Parainfluen 4 PCR NOT DETECTED Nasal RSV (PCR) NOT DETECTED Nasal B.pertussis DNA PCR NOT DETECTED Nasal C.pneumoniae (PCR) NOT DETECTED Naseem Human Metapneumo PCR NOT DETECTED Nasal M.pneumoniae (PCR) NOT DETECTED Nasal SARS-CoV-2 (PCR) NOT DETECTED - Rads (name of study) cxr Radiology: Final report received, EMP read contemporaneously, See rad report CT chest angio Radiology: Final report received, EMP read contemporaneously, See rad report PD MEDICAL DECISION MAKING - ED course Complexity details: reviewed results, re-evaluated patient, considered differential, d/w patient, d/w family, d/w php consultant ED course: Patient is an 86-year-old female with a history of breast cancer. She has had increasing dyspnea and chest pain over the past several days. Appears to have new moderate bilateral pleural effusions with compressive atelectasis. Denies any history of congestive heart failure. Has not had pleural effusions before. She does have significant edema of the bilateral lower extremities. She has hypoxic. 88% on room air lying in bed. Placed on supplemental oxygen. Also found to be in atrial fibrillation with rapid ventricular response. Initially required diltiazem drip to be rate controlled. This was eventually able to be stopped after oral diltiazem and a another dose of IV push diltiazem. Rate controlled in the 80s. Given the new pleural effusions along with the hypoxia. We will admit the patient for further care. Patient is considering whether she wants to do chemotherapy again for her breast cancer or not. She does wish to be DNR. Discussed the case with the hospitalist, telehealth who accepts. This document was made in part using voice recognition software. While efforts are made to proofread this document, sound alike and grammatical errors may occur. FINDINGS: Image quality: Excellent. Pulmonary arteries: Pulmonary arteries are normal in size, and demonstrate no intraluminal filling defects to suggest central pulmonary embolism. Lungs and pleura: Moderate sized bilateral pleural effusions. Atelectatic consolidation of the left lower lobe Mediastinum: Heart size is normal, without pericardial effusion. No mediastinal or hilar adenopathy. Thoracic aorta is normal in caliber and enhancement. Esophagus is normal in caliber, without hiatal hernia. The coronary arteries have atherosclerotic calcifications. Bones and chest wall: Multilevel degenerative changes of the thoracic spine. No suspicious bony lesions. Ribs and thoracic spine appear intact throughout. No axillary or supraclavicular adenopathy. The thyroid is normal in size and there are no incidental findings. Abdomen: Visualized upper abdominal solid organs appear normal in the early arterial phase of enhancement. Parapelvic cyst versus hydronephrosis of the left kidney which is only partially visualized. IMPRESSION: 1. No pulmonary embolism. 2. Moderate sized bilateral pleural effusions with bilateral compressive atelectasis. 3. Consolidation of the left lower lobe consistent with atelectatic collapse and/or pneumonia. 4. The superior pole of the left kidney has a partially visualized round fluid density consistent with either a parapelvic cyst or less likely hydronephrosis. Departure - Departure Disposition: [facility] DC/Xfer Clinical Impression: Hypoxia, Pleural effusion, Atrial fibrillation with RVR Breast cancer Qualifiers: Breast location: unspecified site of breast Estrogen receptor status: unspecified Patient sex: female Laterality: unspecified laterality Qualified Code(s): C50.919 - Malignant neoplasm of unspecified site of unspecified female breast Condition: Stable Discharge Date/Time: 11/10/21 21:00
[2021-11-10 16:20] LABS: ALBUMIN 3.7 g/dL (3.2-5.5); ALBUMIN/GLOBULIN RATIO 0.9 (1.0-2.2); BILIRUBIN,TOTAL 0.5 mg/dL (0.2-1.0); CREATININE 1.2 mg/dL (0.4-1.0); POTASSIUM 4.3 mmol/L (3.5-5.0); TOTAL PROTEIN 7.9 g/dL (6.7-8.2)
[2021-11-10] MEDS ORDERED: MORPHINE 2 MG/ML CARPUJECT IVP STA (16:20)
[2021-11-10] MEDS ORDERED: FUROSEMIDE 40 MG/4 ML VIAL IVP STA (16:20)
--- NOTE | 2021-11-10 17:19 | CT Report ---
PROCEDURE: ANGIO CHEST W/WO INDICATIONS: dyspnea, chest pain, breast CA CONTRAST: IV CONTRAST: Optiray 320 ml: 80 PO CONTRAST: *NO PO CONTRAST TECHNIQUE: After the administration of intravenous contrast, 2 mm axial images were acquired from the pulmonary apices to the posterior costophrenic angles during the arterial phase. In addition, 1 mm lung kernel and 5 mm soft tissue kernel reconstructions were performed. 3-dimensional coronal oblique maximum int ensity projection (MIP) reformats, 8 mm axial MIP, and 5 mm coronal and sagittal MPR reformats were t hen performed through the thorax. For radiation dose reduction, the following was used: automated exp osure control, adjustment of mA and/or kV according to patient size. COMPARISON: None FINDINGS: Image quality: Excellent. Pulmonary arteries: Pulmonary arteries are normal in size, and demonstrate no intraluminal filling d efects to suggest central pulmonary embolism. Lungs and pleura: Moderate sized bilateral pleural effusions. Atelectatic consolidation of the left l ower lobe Mediastinum: Heart size is normal, without pericardial effusion. No mediastinal or hilar adenopathy . Thoracic aorta is normal in caliber and enhancement. Esophagus is normal in caliber, without hiat al hernia. The coronary arteries have atherosclerotic calcifications. Bones and chest wall: Multilevel degenerative changes of the thoracic spine. No suspicious bony lesi ons. Ribs and thoracic spine appear intact throughout. No axillary or supraclavicular adenopathy. The thyroid is normal in size and there are no incidental findings. Abdomen: Visualized upper abdominal solid organs appear normal in the early arterial phase of enhanc ement. Parapelvic cyst versus hydronephrosis of the left kidney which is only partially visualized. IMPRESSION: 1. No pulmonary embolism. 2. Moderate sized bilateral pleural effusions with bilateral compressive atelectasis. 3. Consolidation of the left lower lobe consistent with atelectatic collapse and/or pneumonia. 4. The superior pole of the left kidney has a partially visualized round fluid density consistent wit h either a parapelvic cyst or less likely hydronephrosis. Reviewed by: Guille Meadows on 11/10/2021 5:17 PM PDT Approved by: Guille Meadows on 11/10/2021 5:17 PM PDT Station ID: [id number]
[2021-11-10] MEDS ORDERED: diltiaZEM 30 MG TABLET PO STA (18:05)
[2021-11-10 19:11] LABS: B. PARAPERTUSSIS- RESP PCR PAN NOT DETECTED; B. PERTUSSIS- RESP PCR PANEL NOT DETECTED; C. PNEUMONIAE- RESP PCR PANEL NOT DETECTED; CORONAVIRUS 229E-RESP PCR NOT DETECTED; CORONAVIRUS HKU1-RESP PCR NOT DETECTED; CORONAVIRUS NL63-RESP PCR NOT DETECTED; CORONAVIRUS OC43-RESP PCR NOT DETECTED; HUMAN METAPNEUMOVIRUS NOT DETECTED; INFLUENZA A- RESP PCR PANEL NOT DETECTED; INFLUENZA B - RESP PCR PANEL NOT DETECTED; M. PNEUMONIAE- RESP PCR PANEL NOT DETECTED; PARAINFLUENZA VIRUS 1 NOT DETECTED; PARAINFLUENZA VIRUS 2 NOT DETECTED; PARAINFLUENZA VIRUS 3 NOT DETECTED; PARAINFLUENZA VIRUS 4 NOT DETECTED; RHINOVIRUS/ENTEROVIRUS NOT DETECTED; RSV- RESP PCR PANEL NOT DETECTED; SARS-CoV-2 -RESP PCR PANEL NOT DETECTED
[2021-11-10] MEDS ORDERED: SODIUM CHLORIDE FLUSH 0.9% 10 ML SYRINGE IVP PRN (19:23)
[2021-11-10] MEDS ORDERED: ONDANSETRON 4 MG/2 ML VIAL IVP PRN (19:23)
[2021-11-10] MEDS ORDERED: IPRATROPIUM 0.2 MG/ML NEB INH PRN (19:23)
[2021-11-10] MEDS ORDERED: ACETAMINOPHEN 325 MG TABLET PO PRN (19:23)
[2021-11-10] MEDS ORDERED: ATORVASTATIN 40 MG TABLET PO STA (19:42)
[2021-11-10] MEDS ORDERED: ASPIRIN CHEW 81 MG TABLET PO STA (19:43)
--- NOTE | 2021-11-10 19:48 | HISTORY & PHYSICAL EXAMINATION ---
Chief Complaint - Chief Complaint Chief Complaint: SOB, checst discomfort History of Present Illness - Admitted From Admitted From:: home - History Obtained From History obtained from: pt - History of Present Illness HPI Comment/Other: 86 y/O F with above symptoms for almost 3 days now. She has had some cough but no sputom. denies palpitations but was found to be in afib with rvr in the ER with o2 sats in the 80s. responded well to o2 and diltiazam. She denies fever or chills but has hx of breast Cancer and discussing further treatment versus hospice with her oncologist. Chest CT showed bilateral pleural effusions but no PE History - Past Medical History Cardiovascular: reports: Hypertension, High cholesterol, Atrial fibrillation Respiratory: reports: None Neuro: reports: None Endocrine/Autoimmune: reports: Type 2 diabetes (diet controlled) GI: reports: None [employer]: reports: None : reports: Frequency HEENT: reports: Chronic vision loss Psych: reports: None Musculoskeletal: reports: None Derm: reports: Rosacea MRSA Hx?: No - Past Surgical History Ortho: reports: Arthroscopic surgery (bilateral knees) HEENT: reports: Cataracts - Family & Social History Family History: Father: Hypertension Living arrangement: At home - Substance History Use: Uses substance without health or social issues: NONE - POLST POLST Status: DNR (breast cancer s/p treatments) Meds/Allgy - Home Medications Home Medications: Ambulatory Orders Medication Instructions Recorded Confirmed traMADol [Ultram] 50 mg PO TID PRN 11/10/21 11/10/21 - Allergies Allergies/Adverse Reactions: Allergies Allergy/AdvReac Type Severity Reaction Status Date / Time No Known Drug Allergies Allergy Verified 11/10/21 15:45 Review of Systems - Constitutional Constitutional: reports: Malaise - Cardiovascular Cariovascular: reports: Chest pain, Edema - Respiratory Respiratory: reports: Cough, SOB at rest - Neurological Neurological: reports: General weakness - All Other Systems All Other Systems: reports: Reviewed and negative Exam - Vital Signs Vital Signs: Vital Signs x48h Temp Pulse Resp BP Pulse Ox O2 Flow Rate 11/10/21 19:30 36.5 C 96 24 138/77 H 98 2 11/10/21 19:00 116 H 25 H 144/86 H 96 2 11/10/21 18:30 120 H 28 H 146/98 H 96 2 11/10/21 18:00 118 H 33 H 160/112 H 94 2 11/10/21 17:30 114 H 24 137/92 H 96 11/10/21 17:14 110 H 25 H 140/91 H 96 2 11/10/21 17:09 94 11/10/21 17:05 88 L 11/10/21 17:00 90 24 122/67 92 11/10/21 16:30 126 H 35 H 154/108 H 94 11/10/21 16:29 147 H 29 H 159/114 H 96 11/10/21 15:44 36.5 C 135 H 31 H 150/93 H 97 11/10/21 15:38 36.4 C L 135 H 31 H 150/93 H 97 - Physical Exam General Appearance: positive: No acute distress Neck: positive: Nml inspection Respiratory: positive: No respiratory distress, Breath sounds nml Cardiovascular: positive: Irregularly irregular Peripheral Pulses: positive: 2+ Abdomen: positive: Non-tender Extremities: positive: Pedal edema Conclusion/Plan - Problem List (1) Atrial fibrillation with RVR Conclusion/Plan: start lopresor monitor telemetery start aspirin check echo (2) Hypoxia Conclusion/Plan: O2, nebs, monitor (3) Pleural effusion Conclusion/Plan: echo, if patient agreeable with tap might need pleural tap discuss with oncologist (4) Breast cancer Conclusion/Plan: discuss with her oncologist consider pleural tap Qualifiers: Breast location: unspecified site of breast Estrogen receptor status: unspecified Patient sex: female Laterality: unspecified laterality Qualified Code(s): C50.919 - Malignant neoplasm of unspecified site of unspecified female breast (5) Diabetes mellitus Conclusion/Plan: SSI - Lab Results Fish Bones: 11/10/21 15:55 11/10/21 15:55 - Diagnostic Imaging Results Diagnostic Imaging Results: positive: Prelim report reviewed, Final report reviewed - EKG Results EKG Interpreted Independently: Yes EKG Comparison: Old EKG unavailable (Afib RVR with LBBB)
[2021-11-10] MEDS ORDERED: INSULIN ASPART 300 UNIT/3 ML PEN SUBQ STA (19:58)
[2021-11-10] MEDS ORDERED: FAMOTIDINE 20 MG/2 ML VIAL IVP SCH ×2 (21:00)
--- NOTE | 2021-11-10 21:17 | PROVIDER PROGRESS NOTE ---
Objective - Vital Signs/Intake & Output Vital Signs: Vital Signs x48h Temp Pulse Resp BP Pulse Ox O2 Flow Rate 11/10/21 20:30 96 24 127/92 H 97 2 11/10/21 20:00 92 24 137/92 H 96 2 11/10/21 19:30 36.5 C 96 24 138/77 H 98 2 11/10/21 19:00 116 H 25 H 144/86 H 96 2 11/10/21 18:30 120 H 28 H 146/98 H 96 2 11/10/21 18:00 118 H 33 H 160/112 H 94 2 11/10/21 17:30 114 H 24 137/92 H 96 11/10/21 17:14 110 H 25 H 140/91 H 96 2 11/10/21 17:09 94 11/10/21 17:05 88 L 11/10/21 17:00 90 24 122/67 92 11/10/21 16:30 126 H 35 H 154/108 H 94 11/10/21 16:29 147 H 29 H 159/114 H 96 11/10/21 15:44 36.5 C 135 H 31 H 150/93 H 97 11/10/21 15:38 36.4 C L 135 H 31 H 150/93 H 97 Intake & Output: Intake & Output 11/07/21 11/08/21 11/09/21 11/10/21 23:59 23:59 23:59 23:59 Intake Total 8.917 Balance 8.917 - Lab Results Fish Bones: 11/10/21 15:55 11/10/21 15:55 Other Labs: Lab Results x24hrs 11/10/21 11/10/21 11/10/21 Range/Units 18:12 15:55 15:55 WBC (4.8-10.8) x10^3/uL RBC (4.20-5.40) 10^6/uL Hgb (12.0-16.0) g/dL Hct (37.0-47.0) % MCV (81.0-99.0) fL MCH (27.0-31.0) pg MCHC (32.0-36.0) g/dL RDW (12.0-15.0) % Plt Count (130-450) 10^3/uL MPV (7.9-10.8) fL Neut # (Auto) (1.5-6.6) 10^3/uL Lymph # (Auto) (1.5-3.5) 10^3/uL [place] # (Auto) (0.0-1.0) 10^3/uL Eos # (Auto) (0.0-0.7) 10^3/uL Baso # (Auto) (0.0-0.1) 10^3/uL Absolute Nucleated RBC x10^3/uL Nucleated RBC % /100WBC Sodium (135-145) mmol/L Potassium (3.5-5.0) mmol/L Chloride (101-111) mmol/L Carbon Dioxide (21-32) mmol/L Anion Gap (6-13) BUN (6-20) mg/dL Creatinine (0.4-1.0) mg/dL Estimated GFR (MDRD) (>89) Glucose (70-100) mg/dL Calcium (8.5-10.3) mg/dL Total Bilirubin (0.2-1.0) mg/dL AST (10-42) IU/L ALT (10-60) IU/L Alkaline Phosphatase (42-121) IU/L Troponin I High Sens 20.2 H* (2.3-14.8) ng/L B-Natriuretic Peptide 335 H (5-100) pg/mL Total Protein (6.7-8.2) g/dL Albumin (3.2-5.5) g/dL Globulin (2.1-4.2) g/dL Albumin/Globulin Ratio (1.0-2.2) Lipase (22-51) U/L Nasal Adenovirus (PCR) NOT DETECTED Nasal B. parapertussis DNA (PCR) NOT DETECTED Nasal Coronavir 229E PCR NOT DETECTED Nasal Coronavir HKU1 PCR NOT DETECTED Nasal Coronavir NL63 PCR NOT DETECTED Nasal Coronavir OC43 PCR NOT DETECTED Nasal Enterovir/Rhinovir PCR NOT DETECTED Nasal Influenza B PCR NOT DETECTED Nasal Influenza A PCR NOT DETECTED Nasal Parainfluen 1 PCR NOT DETECTED Nasal Parainfluen 2 PCR NOT DETECTED Nasal Parainfluen 3 PCR NOT DETECTED Nasal Parainfluen 4 PCR NOT DETECTED Nasal RSV (PCR) NOT DETECTED Nasal B.pertussis DNA PCR NOT DETECTED Nasal C.pneumoniae (PCR) NOT DETECTED Naseem Human Metapneumo PCR NOT DETECTED Nasal M.pneumoniae (PCR) NOT DETECTED Nasal SARS-CoV-2 (PCR) NOT DETECTED 11/10/21 11/10/21 Range/Units 15:55 15:55 WBC 9.8 (4.8-10.8) x10^3/uL RBC 4.51 (4.20-5.40) 10^6/uL Hgb 13.1 (12.0-16.0) g/dL Hct 41.6 (37.0-47.0) % MCV 92.2 (81.0-99.0) fL MCH 29.0 (27.0-31.0) pg MCHC 31.5 L (32.0-36.0) g/dL RDW 15.3 H (12.0-15.0) % Plt Count 314 (130-450) 10^3/uL MPV 9.0 (7.9-10.8) fL Neut # (Auto) 7.6 H (1.5-6.6) 10^3/uL Lymph # (Auto) 1.3 L (1.5-3.5) 10^3/uL [place] # (Auto) 0.8 (0.0-1.0) 10^3/uL Eos # (Auto) 0.1 (0.0-0.7) 10^3/uL Baso # (Auto) 0.1 (0.0-0.1) 10^3/uL Absolute Nucleated RBC 0.00 x10^3/uL Nucleated RBC % 0.0 /100WBC Sodium 140 (135-145) mmol/L Potassium 4.3 (3.5-5.0) mmol/L Chloride 101 (101-111) mmol/L Carbon Dioxide 26 (21-32) mmol/L Anion Gap 13.0 (6-13) BUN 22 H (6-20) mg/dL Creatinine 1.2 H (0.4-1.0) mg/dL Estimated GFR (MDRD) 43 L (>89) Glucose 158 H (70-100) mg/dL Calcium 10.0 (8.5-10.3) mg/dL Total Bilirubin 0.5 (0.2-1.0) mg/dL AST 31 (10-42) IU/L ALT 11 (10-60) IU/L Alkaline Phosphatase 117 (42-121) IU/L Troponin I High Sens (2.3-14.8) ng/L B-Natriuretic Peptide (5-100) pg/mL Total Protein 7.9 (6.7-8.2) g/dL Albumin 3.7 (3.2-5.5) g/dL Globulin 4.2 (2.1-4.2) g/dL Albumin/Globulin Ratio 0.9 L (1.0-2.2) Lipase 50 (22-51) U/L Nasal Adenovirus (PCR) Nasal B. parapertussis DNA (PCR) Nasal Coronavir 229E PCR Nasal Coronavir HKU1 PCR Nasal Coronavir NL63 PCR Nasal Coronavir OC43 PCR Nasal Enterovir/Rhinovir PCR Nasal Influenza B PCR Nasal Influenza A PCR Nasal Parainfluen 1 PCR Nasal Parainfluen 2 PCR Nasal Parainfluen 3 PCR Nasal Parainfluen 4 PCR Nasal RSV (PCR) Nasal B.pertussis DNA PCR Nasal C.pneumoniae (PCR) Naseem Human Metapneumo PCR Nasal M.pneumoniae (PCR) Nasal SARS-CoV-2 (PCR) Assessment/Plan - Problem List (2) Elevated troponin Impression: elevared troponin noted probably due to demand ischemia 2/2 afib/rvr. will give pt asa and lipitor and lopressor and check echo in AM and monitr on tele for now
[2021-11-10 21:32] LABS: ESTIMATED AVERAGE GLUCOSE 134 mg/dL (70-100); HEMOGLOBIN A1c% 6.3 % (4.27-6.07)
--- NOTE | 2021-11-10 21:50 | PROVIDER PROGRESS NOTE ---
Log Feeder Note - Log Feeder Note Log Feeder Note: elevared troponin noted probably due to demand ischemia 2/2 afib/rvr. will give pt asa and lipitor and lopressor and check echo in AM and monitr on tele for now
[2021-11-10] MEDS: INSULIN LISPRO 300 UNIT/3 ML PEN SUBQ SCH (21:56)
[2021-11-10] MEDS: HEPARIN 5,000 UNIT/ML VIAL SUBQ SCH (22:12)
[2021-11-10] MEDS: METOPROLOL SUCCINATE 25 MG TABLET PO SCH (22:17)
[2021-11-11] MEDS: SODIUM CHLORIDE FLUSH 0.9% 10 ML SYRINGE IVP SCH ×3 (01:25→18:27)
[2021-11-11] MEDS ORDERED: ZINC OXIDE 20% OINT 30 GM TUBE TOP PRN (04:34)
[2021-11-11] MEDS ORDERED: ZINC OXIDE 20% OINT 30 GM TUBE TOP ONE (04:51)
[2021-11-11 05:44] LABS: BASOPHILS # (AUTO) 0.1 10^3/uL (0.0-0.1); BASOPHILS % (AUTO) 0.6 %; EOSINOPHILS # (AUTO) 0.1 10^3/uL (0.0-0.7); EOSINOPHILS % (AUTO) 0.8 %; HCT - HEMATOCRIT 36.3 % (37.0-47.0); HGB - HEMOGLOBIN 11.9 g/dL (12.0-16.0); LYMPHOCYTES # (AUTO) 0.8 10^3/uL (1.5-3.5); LYMPHOCYTES % (AUTO) 10.9 %; MEAN CORPUSCULAR HGB CONC 32.8 g/dL (32.0-36.0); MEAN CORPUSCULAR VOLUME 91.4 fL (81.0-99.0); MEAN PLATELET VOLUME 8.8 fL (7.9-10.8); MONOCYTES # (AUTO) 0.6 10^3/uL (0.0-1.0); MONOCYTES % (AUTO) 7.9 %; NEUTROPHILS # (AUTO) 6.1 10^3/uL (1.5-6.6); NEUTROPHILS % (AUTO) 79.3 %; PLT - PLATELET COUNT 251 10^3/uL (130-450); RED BLOOD COUNT 3.97 10^6/uL (4.20-5.40); RED CELL DISTRIBUTION WIDTH 15.2 % (12.0-15.0); WHITE BLOOD COUNT 7.7 x10^3/uL (4.8-10.8)
[2021-11-11 06:05] LABS: ALBUMIN 3.3 g/dL (3.2-5.5); BILIRUBIN,TOTAL 0.8 mg/dL (0.2-1.0); CALCIUM 9.4 mg/dL (8.5-10.3); CREATININE 1.2 mg/dL (0.4-1.0); POTASSIUM 4.1 mmol/L (3.5-5.0); TOTAL PROTEIN 6.7 g/dL (6.7-8.2)
[2021-11-11] MEDS: INSULIN LISPRO 300 UNIT/3 ML PEN SUBQ SCH ×4 (08:06→21:19)
--- NOTE | 2021-11-11 08:11 | XRAY Report ---
PROCEDURE: Chest 1 View X-Ray INDICATIONS: pleural effusions TECHNIQUE: One view of the chest was acquired. COMPARISON: 11/10/2021 FINDINGS: Surgical changes and devices: None. Lungs and pleura: Pulmonary vascular congestion is again seen with left greater than right bilateral pleural effusion and bibasilar atelectasis/small infiltrates. No gross pneumothorax. Mediastinum: Mediastinal contours appear normal. Heart size is enlarged. Bones and chest wall: No suspicious bony lesions. Overlying soft tissues appear unremarkable. IMPRESSION: Persistent left greater than right bilateral pleural effusion not significantly changed from previous study. Pulmonary vascular congestion. No gross pneumothorax. Reviewed by: Hossein Tijerina MD on 11/11/2021 8:09 AM PDT Approved by: Hossein Tijerina MD on 11/11/2021 8:09 AM PDT Station ID: [id number]
[2021-11-11] MEDS: FAMOTIDINE 20 MG TABLET PO SCH ×2 (08:13→21:19)
[2021-11-11] MEDS: METOPROLOL SUCCINATE 25 MG TABLET PO SCH ×2 (08:13→21:19)
[2021-11-11] MEDS: HEPARIN 5,000 UNIT/ML VIAL SUBQ SCH (08:14)
[2021-11-11] MEDS: HYDROcod/ACETAM 5/325 MG TABLET PO PRN (10:15)
--- NOTE | 2021-11-11 10:35 | PHARMACY PROGRESS NOTE ---
- Best Possible Medication History Admit Date and Time: 11/10/211922 Processed by: Nursing Medication History completed: Yes Patient Interview: Completed Secondary Source(s): Pharmacy records, Insurance records As the person ultimately responsible for medication therapy, providers are able to order a medication from an existing home medication list in [facility] via the "Reconcile Routine" prior to Confirmation of that medication by systems support specialist. Such practice is discouraged except when the physician, in their clinical judgment, deems that a medical need exists for a medication without regard to previous use.
[2021-11-11] MEDS ORDERED: HYDROmorphone 0.5 MG/0.5 ML SYRINGE IVP PRN (12:15)
--- NOTE | 2021-11-11 12:18 | ADVANCE CARE PLANNING NOTE ---
Advance Care Planning - Planning Encounter Date: 11/11/21 Time: 12:15 Purpose: Establish care goals with regards to treatment of breast cancer Parties in Attendance: Hospitalist and patient Decisional Capacity of the Patient: She is in pain, but awake, alert, making her own decisions and is not considered to have cognitive deficits - Diagnosis for Encounter (1) Breast cancer Qualifiers: Breast location: unspecified site of breast Estrogen receptor status: positive Patient sex: female Laterality: left Qualified Code(s): C50.912 - Malignant neoplasm of unspecified site of left female breast; Z17.0 - Estrogen receptor positive status [ER+]
--- NOTE | 2021-11-11 12:31 | ADVANCE CARE PLANNING NOTE ---
Advance Care Planning - Planning Encounter Date: 11/11/21 Time: 12:33 Purpose: Establish care goals in a patient with cancer Parties in Attendance: Hospitalist and patient Decisional Capacity of the Patient: Alert, oriented, speech is lucid. She is uncomfortable from pain in her left neck but is sitting in chair upright, eating a shrimp salad - Diagnosis for Encounter (1) Breast cancer Qualifiers: Breast location: unspecified site of breast Estrogen receptor status: positive Patient sex: female Laterality: left Qualified Code(s): C50.912 - Malignant neoplasm of unspecified site of left female breast; Z17.0 - Estrogen receptor positive status [ER+] - Encounter Subjective/Patient's Story: She was born and raised in [place] and ended up marrying a gentleman and had 2 daughters with him. They moved to the [facility] and she lived in [facility] but prior to that [place]. They ended up and she was raising her 2 daughters. 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 She had maxed out her salary at so sought employment in [employer] for 4 years to be able to get the money to fix up her house. When she was in [employer] she met her second . They retired and moved to the [place] 30 years ago. He last year. She said that she has had a wonderful life. She has 2 daughters Mariajose and Delmis. Mariajose lives in [place] and Delmis lives in [place]. They are very supportive. She considers them both as DPOA. She has had some medical illnesses such as high blood pressure, atrial fibrillation, and diet-controlled diabetes but considers her self healthy until she was diagnosed with breast cancer. She was diagnosed with stage III ER and AZ positive cancer in 2019 and underwent a lumpectomy with breast mass resection. She was node positive. Extranodal extension was present. She was referred for radiation but she did not do it. She was started on anastrozole and declined doing chemotherapy. In the middle of all this her and she kind of lost track of things. So she stopped taking her medications, and really never followed back up again with oncology. She has been independent. Still able to drive a car, do light housekeeping, and is not using any durable medical equipment. Her daughters help her a lot if she ever needs anything. She started developing a thick red rash over her left breast. Is starting to come up her chest wall is going up the left side of her neck. She underwent a mammogram for this September 23 and ultrasound was recommended. She now has large lymph glands, hypoechoic masses in the left breast, and the spreading inflammatory rash. Upon biopsy, It is invasive lobular carcinoma, ER positive, AZ negative, Ki-67 25%, HER2/edenilson equivocal and negative by FISH. She saw Dr. Palafox, from oncology, November 10, her day of admission. She states that he gave her excellent options and that they were clear to her and it was going to be up to her to decide what to do. She then went to the emergency room from his office because she was so short of breath and having chest for the last 2 days. She says that the pain comes in waves at times. It is substernal, left-sided, radiates up the left side of her neck into the back of her neck. Sometimes moving the neck makes it worse.In the emergency room she is found to have bilateral pleural effusions, and atrial fibrillation with RVR probably inducing some congestive heart failure. Her rate is now been lowered, she is on anticoagulation, and is received diuresis. As she is thought about his options, she is realized that she really does not want to move forward with treatment. She feels like she has had a good life. She does not want to spend whatever time she has left doing radiation, chemotherapy. Her main concern is finances. She does want to be caught in the limbo between Medicare and hospice. She was a clear distinction of before hospice healthcare finances and after hospice healthcare finances. She also wants her pain control. She was wanting to avoid opiates to have clear mentation but at this point, today, the pain is so severe she would rather have pain medicine then move forward without it. She has not thought much about going home and who is going to take care of her. I explained that hospice is going to be very clear and asking who will help her be at home. She is good to be depending on both daughters but will most likely also need a list of caregivers to help her daughters. Her focus is to be as comfortable as possible and to at home. I explained that she does have bilateral pleural effusions. Some of that could be causing shortness of breath. She is amenable to getting therapeutic thoracentesis to making her feel more comfortable even though the pleural effusions will come back. I did talk about pleurodesis and she is not interested in that. Objective/Medical Story: 86 y/O F with above symptoms for almost 3 days now. She has had some cough but no sputom. denies palpitations but was found to be in afib with rvr in the ER with o2 sats in the 80s. responded well to o2 and diltiazam. She denies fever or chills but has hx of breast Cancer and discussing further treatment versus hospice with her oncologist. Chest CT showed bilateral pleural effusions but no PE - Past Medical History Cardiovascular: reports: Hypertension, High cholesterol, Atrial fibrillation Respiratory: reports: None Neuro: reports: None Endocrine/Autoimmune: reports: Type 2 diabetes (diet controlled) GI: reports: None CAGE SUPERVISOR: reports: None : reports: Frequency HEENT: reports: Chronic vision loss Psych: reports: None Musculoskeletal: reports: None Derm: reports: Rosacea MRSA Hx?: No - Past Surgical History Ortho: reports: Arthroscopic surgery (bilateral knees) HEENT: reports: Cataracts Goals of Care: 1. She declines chemotherapy, radiation 2. She would like to be discharged home once we have maximized her ability to make her comfortable Plan: 1. Discussed with radiology for bilateral thoracentesis or 1 thoracentesis for therapeutic comfort 2. I have offered to speak to her daughters and she says that they already know how she feels and they will not be surprised with her request to transition to home with hospice 3. DO NOT RESUSCITATE status confirmed 4. Give Dilaudid as needed intravenously for the first couple of doses and transition to oral meds to achieve as much pain relief as possible while she is here Code Status: Do Not Attempt Resuscitation Time spent on advance care plannin minutes
--- NOTE | 2021-11-11 13:04 | PROVIDER PROGRESS NOTE ---
Progress Note November 11, 2021 12:38 PM Patient was seen today after admission last night by telemedicine. Her main complaint this morning is constant unremitting left-sided chest wall pain that is rating up her left neck. Movement of her left neck is getting increasingly painful. Last night the emergency room provider gave her a strong pain medicine that took away the pain and she thought she was doing well until after breakfast this morning. Pain is starting to come back and she would like some more pain medicine. She has been hesitating about taking any opiates because she wanted to have a clear sensorium to make good decisions with regards to her health care. But this pain is so bad that she change her mind. Please see advance care planning conversation dictated under separate note. 45 minutes was spent with the patient this morning. Active Medications Acetaminophen (Acetaminophen 325 Mg Tablet) 650 mg PO Q4HR PRN PRN Reason: Pain 1 to 4, or Fever Hydrocodone Bitart/Acetaminophen (Hydrocod/Acetam 5/325 Mg Tablet) 1 tab PO Q4HR PRN PRN Reason: Pain 5 to 7 Last Admin: 11/11/21 10:15 Dose: 1 tab Famotidine (Famotidine 20 Mg Tablet) 20 mg PO BID [facility] Last Admin: 11/11/21 08:13 Dose: 20 mg Heparin Sodium (Porcine) (Heparin 5,000 Unit/Ml Vial) 5,000 unit SUBQ BID [facility] Last Admin: 11/11/21 08:14 Dose: 5,000 unit Hydromorphone HCl (Hydromorphone 0.5 Mg/0.5 Ml Syringe) 0.5 mg IVP Q2H PRN PRN Reason: PAIN Insulin Human Lispro (Insulin Lispro 300 Unit/3 Ml Pen) 1 - 5 unit SUBQ 0800,12 00,1700,2100 [facility]; Protocol Last Admin: 11/11/21 12:41 Dose: 2 unit Ipratropium Warners (Ipratropium 0.2 Mg/Ml Neb) 0.5 mg INH Q6HR PRN PRN Reason: Wheezing Metoprolol Succinate (Metoprolol Succinate 25 Mg Tablet) 25 mg PO BID [facility] Last Admin: 11/11/21 08:13 Dose: 25 mg Multi-Ingredient Ointment (Zinc Oxide 20% Oint 30 Gm Tube) 1 applic TOP PRN PRN PRN Reason: Skin Care Last Admin: 11/11/21 04:38 Dose: 1 applic Ondansetron HCl (Ondansetron 4 Mg/2 Ml Vial) 4 mg IVP Q6HR PRN PRN Reason: Nausea / Vomiting Sodium Chloride (Sodium Chloride Flush 0.9% 10 Ml Syringe) 10 ml IVP 0100, 0900,1700 [facility] Last Admin: 11/11/21 08:16 Dose: 10 ml Sodium Chloride (Sodium Chloride Flush 0.9% 10 Ml Syringe) 10 ml IVP PRN PRN PRN Reason: NEEDED PER PROVIDER ORDERS traMADol [Ultram] 50 mg PO TID PRN 11/10/21 Temperature 36.5. Heart rate was 140 at 11 AM and is now 97. Blood pressure 118/70. Respirations 16. 93% on room air. Telemetry from 8 AM still indicates atrial fibrillation. She is sitting upright in her chair, comfortable. No tachypnea or increased respiratory effort. Alert oriented elderly female who looks well-nourished and looks stated age. Neck is supple she does not have JVD She has an irregular rate and rhythm Lungs have diminished breath sounds at the bases and are dull to percussion. Mild egophony at the bases. Abdomen is soft, nontender, hypoactive bowel sounds. Extremities with trace edema Sodium 136, potassium 4.1. BUN 21, creatinine 1.2. Fasting glucose is 136. Right before breakfast she is 128, and right before lunch is 191. Liver function studies are normal. White cell count is 7.7, hemoglobin 11.9. She was 13.1 on admission. I reviewed her CT thorax CT angiogram and she has moderate sized bilateral pleural effusions. Atelectasis/consolidation of the left lower lobe. No pericardial effusion. No suspicious bony lesions in her T-spine. Parapelvic cyst versus hydronephrosis of the left kidney partially visualized. No pulmonary emboli. Chest x-ray this morning has persistence of left greater than right pleural effusions not changed from previous study. Assessment/plan: 1. Atrial fibrillation with RVR. She is not having an NJ, she does not have a pulmonary embolism. Continue with rate control measures. Review echocardiogram after has been done today. Anticoagulation is being considered with Lea but I am holding off on doing that based on problem #3. In the end, reducing her risk of stroke in a terminally ill patient may be a moot issue. 2. Admitting hypoxia has resolved. She is now 93 to 97% on room air. 3. Bilateral pleural effusions. In this dg, unfortunate elderly female her effusions could be either from atrial fibrillation causing congestive heart failure or malignancy. If it is malignancy, she does not want treatment for malignancy and would like to proceed with hospice. However she is interested in finding out if she can have relief of shortness of breath with a therapeutic thoracentesis. I will discuss with radiology. 4. Breast cancer, most likely stage IV. Please see dictation of advance care planning under separate note. 5. Type 2 diabetes mellitus, controlled, without complications, not on long- term insulin. She is on sliding scale insulin. She did not need to have any insulin last night, before breakfast, and received 2 units before lunch. We will continue that today.
[2021-11-11 16:18] LABS: INR 1.3 (0.8-1.2); PT - PROTHROMBIN TIME 14.4 secs (9.9-12.6)
[2021-11-12] MEDS: SODIUM CHLORIDE FLUSH 0.9% 10 ML SYRINGE IVP SCH ×2 (00:39→10:57)
[2021-11-12] MEDS: HYDROcod/ACETAM 5/325 MG TABLET PO PRN (00:46)
[2021-11-12] MEDS: INSULIN LISPRO 300 UNIT/3 ML PEN SUBQ SCH (10:56)
[2021-11-12] MEDS: FAMOTIDINE 20 MG TABLET PO SCH (10:57)
[2021-11-12] MEDS: METOPROLOL SUCCINATE 25 MG TABLET PO SCH (10:57)
[2021-11-12] MEDS ORDERED: HEPARIN 5,000 UNIT/ML VIAL SUBQ SCH (11:00)
--- NOTE | 2021-11-12 11:45 | Discharge Plan ---
Discharge Plan Problem Reviewed?: Yes Disposition: 50 Hospice/Home DC/Xfer Condition: Stable Prescriptions: HYDROmorphone [Dilaudid] 2 mg PO Q6H #6 tablet Metoprolol Succinate [Toprol Xl] 25 mg PO BID #60 tab Diet: Regular Activity Restrictions: Activity as Tolerated Shower Restrictions: No Driving Restrictions: Yes (no driving) Health Concerns: You had gone to your cancer doctor office for an opinion about recurrence of your breast cancer, and while in his office you explained that you been having chest pain for a couple of days and it was getting worse. He was worried about your heart so we sent you to the emergency room. You are not having a heart attack, but you did have a fast heart rate that is irregularly irregular. We call that heart rate atrial fibrillation. The cause of atrial fibrillation is valve disease in your heart, heart chambers and your heart, blood clots to the lung, or heart attack. We found none of those problems but we did find that you have fluid outside of your lungs, most likely irritating your heart and lungs. The fluid is most likely caused by your recurrent breast cancer. Plan of Treatment: 1. We have slow down your heart rate to acceptable levels. We use the medicine Toprol XL which is generic for metoprolol. Please take 1 tablet twice a day. If your heart rate gets too slow, just take 1 tablet once a day. 2. We looked at your heart to make sure you did not have valvular heart disease and you did not. However, your heart is under stress from the fast heart rate and the muscle of your left chamber is not pumping at 100%. There is not much we can do about it except to slow down your heart rate and give you time to recover. 3. You carefully weighed all the options that your oncologist gave you on the day of admission. Your breast cancer is spreading quickly especially along the skin of your chest wall and is becoming increasingly painful. You took the philosophical view that you have had a very good life, and you really do not want to undergo surgeries, radiation or chemotherapy. You would prefer to go home with hospice. As such hospice will be opening you up to their service on November 13. 4. To control your pain I am sending you home with a few tablets of pain medication called Dilaudid. Those will hold you over until tomorrow when hospice sees you. You are also asking for the inhalation exercise blower called incentive spirometry. We are sending you home with that. 5. The last thing we did before your discharge is to fill out the physician order for life-sustaining treatment. Your daughter Delmis was at the bedside. You are a DO NOT RESUSCITATE with focus on comfort measures and no hospitalizations. Care Goals: Your stated goal is to have a peaceful, comfortable passing away at home. You do not want to be in the hospital. Assessment: Patient and daughter are in agreement with each other about care goals. This daughter and her sister will be with mom. They also plan on getting a list from hospice for caregivers. Follow-Up Care: Hospice No Smoking: If you smoke, Please STOP! Call for help. Follow-up with: Amy Sol ARNP [Primary Care Provider] -
--- NOTE | 2021-11-12 12:07 | DISCHARGE SUMMARY ---
"Discharge Summary Admit Date: 11/10/21 Discharge Date: 11/12/21 Discharging Provider: Delores Eddy MD Primary Care Provider: Conrad Palafox MD Code Status: Do Not Attempt Resuscitation Condition at Discharge: Poor Discharge Disposition: 50 Hospice/Home DC/Xfer - DIAGNOSES Discharge Diagnoses with Status of Each Condition: 1. Acute respiratory failure with hypoxia 2. Chest pain due to to cancer 3. Metastatic breast cancer 4. Bilateral pleural effusions 5. New onset atrial fibrillation with RVR 6. Hypertension - HPI History of Present Illness: She has had some medical illnesses such as high blood pressure, atrial fibrillation, and diet-controlled diabetes but considers her self healthy until she was diagnosed with breast cancer. She was diagnosed with stage III ER and OK positive cancer in 2019 and underwent a lumpectomy with breast mass resection. She was node positive. Extranodal extension was present. She was referred for radiation but she did not do it. She was started on anastrozole and declined doing chemotherapy. In the middle of all this her and she kind of lost track of things. So she stopped taking her medications, and really never followed back up again with oncology. She started developing a thick red rash over her left breast. Is starting to come up her chest wall is going up the left side of her neck. She underwent a mammogram for this September 23 and ultrasound was recommended. She now has large lymph glands, hypoechoic masses in the left breast, and the spreading inflammatory rash. Upon biopsy, It is invasive lobular carcinoma, ER positive, OK negative, Ki-67 25%, HER2/edenilson equivocal and negative by FISH. She saw Dr. Palafox, from oncology, November 10, her day of admission. She states that he gave her excellent options and that they were clear to her and it was going to be up to her to decide what to do. She then went to the emergency room from his office because she was so short of breath and having chest pain for the last 2 days. She says that the pain comes in waves at times. It is substernal, left-sided, radiates up the left side of her neck into the back of her neck. Sometimes moving the neck makes it worse. In the emergency room she is found to have bilateral pleural effusions, and atrial fibrillation with RVR probably russell cing some congestive heart failure. Her rate is now been lowered, she is on anticoagulation, and has received diuresis. - CONSULTS | PROCEDURES Procedures: 1. Chest x-ray has new bilateral pleural effusions when compared to chest x-ray from August 18, 2021. Underlying areas of pneumonia and or atelectasis or mass lesion cannot be excluded. 2. Chest/thorax CT angiogram. No pulmonary embolism. Moderate sized bilateral pleural effusions with bilateral compressive atelectasis. Consolidation of left lower lobe consistent with atelectatic collapse or pneumonia. The superior pole of the left kidney has a partially visualized rounded fluid density consistent with either a parapelvic cyst or less likely hydronephrosis. 3. Preliminary echocardiogram report shows it to be a very technically Difficult study to do with limited views. She could not tolerate the probe over left anterior chest wall and it was quite painful. Her overall left ventricular systolic function appeared to be moderately impaired and she had atrial fibrillation. - HOSPITAL COURSE Hospital Course: I sat down with the patient to go over what we found and what I was thinking. I was fearful that she now had bilateral pleural effusions from either new congestive heart failure or metastatic breast cancer. She explained that she did not want to move forward with any treatment. She just wanted to be made comfortable. As such we slow down her heart rate, did not start anticoagulation, and did not do thoracentesis for diagnosis. I did ask for thoracentesis on the basis of therapy to see if we can make her shortness of breath better but radiology stated that these effusions were not really large enough to make any difference with regards to symptomatology if we do thoracentesis. As such the patient decided she would like to go home and be entered into hospice. I have spoken to hospice and they will be opening her up in the outpatient setting tomorrow. The patient asked for incentive spirometry, to fill out a POLST form, and to have some pain medicine at home between today and tomorrow. Dilaudid was sent to [facility]. 6 tablets. Tomorrow hospice will open her up and provide her with more medication. She really is concerned about how much pain she is having. Even in the last few days she has noticed that the cancer is more painful and bubbling as it comes up from her left breast and spreads along her anterior chest wall into her neck. We did talk about topical means such as lidocaine patches but if the skin becomes raw and eroded those will not be able to be used. I asked her to please make sure she speaks to the nurse about her concern to make sure that that is addressed preemptively. We also talked about toilet mastectomies if the pain becomes agonizing and difficult to control. Daughter Kaley was at the bedside. Taking notes and I answered all her questions. She appears to have a loving and supportive relationship with both her daughters. At discharge exam was 36.3. Heart rate 89. Blood pressure 131/90. Respirations 16. 96% on room air. She is 79 kg, 5 feet 2 inches tall. Elderly female who looks her stated age and is sitting upright and complains of some discomfort of the left anterior chest wall and left neck but pain is down to a 4 out of a 10 with Dilaudid and lidocaine patch to the left neck. Her left anterior chest wall is remarkable for bubbling subcutaneous nodules that are spreading from the breast up the anterior chest wall and stopped at the clavicle but redness continues up to the left posterior cervical neck. The breast itself is hardened, lumpy, with skin retracted. You can see where there may be early ulcers developing. Lungs have diminished breath sounds at the bases, but no respiratory distress yet. She has an irregular rate and rhythm that is controlled with the metoprolol. Heart rate is in the 80s to 90s. The abdomen is soft, nontender. Extremities have edema, left foot is more edematous than right foot. But she ambulates without assistance by getting up, and going to the bathroom albeit quite slowly. She needs a standby assist. Greater than 30 minutes was spent coordinating discharge.POLST form was filled out. Original given to patient and copy For our EMR - ALLERGIES Allergies/Adverse Reactions: Allergies Allergy/AdvReac Type Severity Reaction Status Date / Time No Known Drug Allergies Allergy Verified 11/10/21 15:45 - MEDICATIONS Home Medications: Ambulatory Orders Medication Instructions Recorded Confirmed traMADol [Ultram] 50 mg PO TID PRN 11/10/21 11/10/21 Acetaminophen [Tylenol] 650 mg PO Q4HR PRN tab 11/12/21 HYDROmorphone [Dilaudid] 2 mg PO Q6H #6 tablet 11/12/21 Metoprolol Succinate [Toprol Xl] 25 mg PO BID #60 tab 11/12/21 Zinc Oxide 20% Oint [Zinc Oxide] 1 applic TOP PRN PRN each 11/12/21 - LABS Result Diagrams: 11/11/21 05:35 11/11/21 05:35"
[2021-11-12 12:40] VITALS: BP 124/74
== END 2021-11-12 12:46 | disposition hospice, home (50) | DRG 189 ==
LOC: ED 15:31 → MS2 19:23
PROVIDERS: ADMIT Hospitalist; ATTEND Specialist
DX: R09.02 Hypoxemia (principal); J96.01 Acute respiratory failure with hypoxia; J90 Pleural effusion, not elsewhere classified; C50.919 Malignant neoplasm of unspecified site of unspecified female breast; I24.8 Other forms of acute ischemic heart disease; J98.11 Atelectasis; Z20.822 Contact with and (suspected) exposure to COVID-19; G89.3 Neoplasm related pain (acute) (chronic); C50.912 Malignant neoplasm of unspecified site of left female breast; R60.0 Localized edema; I44.7 Left bundle-branch block, unspecified; Z17.0 Estrogen receptor positive status [ER+]; I48.91 Unspecified atrial fibrillation; I10 Essential (primary) hypertension; E11.9 Type 2 diabetes mellitus without complications; Z66 Do not resuscitate
CPT/HCPCS: 36415; 71045; 80048; 80053; 83735; 85025; 85610; 93005; 93308; A9270; 83036; 83690; 83880; 84484; 87633; 96365; 96366; 96375; 96376; 99285

== ENCOUNTER 2021-11-29 17:58 | Outpatient (CLI) | payer MEDICARE | END 2021-11-29 17:59 | disposition EMS.NT | LOC: EMS 17:58 | DX: Z03.89 Encounter for observation for other suspected diseases and conditions ruled out (principal) ==